=== PATIENT | female | born 1960 | race Native Hawaiian/Other Pacific Islander ===

== ENCOUNTER 2022-02-01 19:57 | Inpatient (IN) | payer MEDICARE, SELFPAY ==
[2022-02-01] VITALS (8 sets, daily range): BP systolic 130–162; BP diastolic 68–94; PULSE 98–107; RESP 16–26; TEMP 36.2; O2SAT 93–98
--- NOTE | 2022-02-01 20:16 | DI.CT.S_ITS ---
PROCEDURE: CT ABDOMEN PELVIS W CON INDICATIONS: GI bleed TECHNIQUE: After the administration of oral and IV contrast, axial sections were acquired from the lung bases to the pubic symphysis. Coronal and sagittal reformats were performed. For radiation dose reduction, the following was used: automated exposure control, adjustment of mA and/or kV according to patient size. COMPARISON: None. FINDINGS: Image quality: Excellent. Lung bases: There is scarring and atelectasis in the lung bases. Mild bronchiectasis is also demonstrated within the inferior right middle lobe likely representing sequelae of prior infection.. Heart: Heart is normal in size. ABDOMEN: Liver: No mass lesion. Gallbladder: Within normal limits without calcified gallstones. Biliary ducts: No biliary ductal dilatation. Pancreas: Unremarkable. Spleen: Normal in size. Adrenal Glands: No adrenal nodules. Kidneys and Ureters: No hydronephrosis. There is renal cortical thinning anteriorly within the right kidney suggesting sequelae of prior infection, trauma, or infarct. 2 punctate calcifications within the right kidney are suggestive of nonobstructing renal stones. Stomach and Bowel: Stomach, small bowel loops, and colon are normal in caliber and wall thickness. The appendix is not discretely identified but there are no pericecal inflammatory changes to suggest appendicitis. No evidence of diverticulitis. No definite mass-like bowel wall thickening identified. Peritoneum: No abnormal intraperitoneal fluid. No free air. Ventral Wall: No hernia. Abdominal Nodes: No retroperitoneal or mesenteric adenopathy by size criteria. Vessels: Aorta and inferior vena cava are normal in size. PELVIS: Pelvic Organs: Unremarkable. Bladder: Unremarkable. Pelvic Nodes: No enlarged lymph nodes. Miscellaneous: No inguinal hernias are seen. Bones: Visualized osseous structures demonstrate no suspicious focal lesions. IMPRESSION: 1. No evidence of diverticulitis or definite masslike bowel wall thickening. Recommend correlation with colonoscopy as clinically indicated. Dictated by: Kishan Marquez M.D. on 02/01/2022 at 21:59 Approved by: Kishan Marquez M.D. on 02/01/2022 at 22:04
--- NOTE | 2022-02-01 20:17 | ED.GIBLEED ---
HPI - GI Bleed General Chief complaint: Syncope Stated complaint: Syncope Time Seen by Provider: 02/01/22 20:10 Source: patient and EMS Mode of arrival: EMS History of Present Illness HPI Narrative: Patient is from [place]. Here for a retreat with family. Patient brought here by ambulance from the retreat, had syncopal episode in the bathroom. Denies any pain or injury. Through this past week patient has had episodes of coffee-ground emesis and black tarry stools. No prior history of gastric ulcer. Was on baby aspirin daily but stopped a year ago. Otherwise not on any blood thinners. Denies any abdominal pain at this time. Patient awake alert oriented x4. No distress. Has history of [place] and stroke in the past. Has history of diabetes. Is on metformin 1000 mg twice a day. Is on lisinopril 10 mg twice a day. Those are her only medications. Related Data Home Medications Medication Instructions Recorded Confirmed acetaminophen 500 mg tablet 1,000 mg PO Q6H PRN Headache 02/02/22 02/02/22 insulin glargine 100 unit/mL (3 50 unit SUBCUT BID 02/02/22 02/02/22 mL) subcutaneous pen (Lantus Solostar U-100 Insulin) insulin lispro 100 unit/mL 40 unit SUBCUT TID 02/02/22 02/02/22 subcutaneous pen lisinopril 10 mg tablet 10 mg PO BID 02/02/22 02/02/22 metformin 1,000 mg tablet 1,000 mg PO BID 02/02/22 02/02/22 oxycodone-acetaminophen 10 mg-325 1 tab PO BID pain 02/02/22 02/02/22 mg tablet (Percocet) Allergies Allergy/AdvReac Type Severity Reaction Status Date / Time adhesive tape Allergy Verified 02/01/22 20:07 ibuprofen Allergy Verified 02/01/22 20:07 Review of Systems Review of Systems Narrative: GENERAL: Denies chills, positive for fatigue, malaise, negative for fever, sweats. HEENT: Denies sinus pain, ear pain, sore throat RESPIRATORY: Denies dyspnea, cough CARDIOVASCULAR: Denies chest pain, palpitations GASTROINTESTINAL: Positive for nausea, vomiting, abdominal pain, black stools, hematemesis : Denies dysuria, frequency, hematuria MUSCULOSKELETAL: denies muscle or bony pain SKIN: Denies rash, skin lesions NEUROLOGIC: Denies weakness, numbness ROS Unobtainable: All systems reviewed & are unremarkable except as noted in HPI and below Patient History Medical History (Updated 02/02/22 @ 01:36 by TRENT Harris-) Diabetic neuropathy associated with type 2 diabetes mellitus Essential hypertension History of heart attack History of stroke with residual deficit Insulin dependent diabetes mellitus with complications Obesity (BMI 30-39.9) Surgical History (Updated 02/02/22 @ 01:36 by TRENT Harris-REBA) History of esophagogastroduodenoscopy (EGD) Family History Mother Diabetes mellitus Hypertension Hyperlipidemia Stroke Heart attack Sister Cancer Social History household members: children Smoking Status: Never smoker Smoking Status: Never smoker alcohol intake frequency: 0-2 drinks per day Substance Use Type: does not use Exam Narrative Exam Narrative: GENERAL: in no distress, not toxic not dyspneic HEAD: Normocephalic. EYES: Pupils equal round No scleral icterus. Slightly pale conjunctiva ENT: Mucous membranes moist. NECK: Trachea midline. CARDIOVASCULAR: Regular rate and rhythm without murmurs RESPIRATORY: Clear to auscultation. Breath sounds equal bilaterally. No wheezes, rales, or rhonchi. GASTROINTESTINAL: Abdomen soft, non-tender, no peritoneal signs. Bowel sounds are present EXTREMITIES: No gross deformities. NEURO: AOx4. SKIN: Warm and dry PSYCH: Not anxious, is cooperative Initial Vital Signs Initial Vital Signs: Vital Signs Temperature 97.1 F L 02/01/22 20:02 Pulse Rate 106 H 02/01/22 20:02 Respiratory Rate 18 02/01/22 20:02 Blood Pressure 133/94 H 02/01/22 20:02 Pulse Oximetry 93 02/01/22 20:02 Oxygen Delivery Method 02/01/22 20:02 Course Course Course Narrative: No new issues during course of stay Decision to Admit Date: 02/01/22 Decision to Admit time: 22:18 Orders Ordered: ED Orders 02/01/22 20:00 COVID19 -Nasal RAPID/Pre-Proc Stat 02/01/22 20:13 Complete Blood Count AUTO DIFF Stat Comprehensive Metabolic Panel Stat PT [Prothrombin Time INR] Stat PTT [Partial Thromboplastin Time] Stat Troponin & CK Cardiac Panel Stat Type and Screen Stat 02/01/22 20:16 CT abdomen pelvis w con Stat Acetaminophen (Acetaminophen 325 Mg Tablet) 650 mg PO Q6HR PRN PRN Reason: Fever/Mild Pain (1-3) Last Admin: 02/02/22 00:55 Dose: 650 mg Documented By: SONIA Dextrose (Dextrose 50 % In Water 25 Gm/50 Ml Syringe) 25 gm IV PRN PRN PRN Reason: Hypoglycemia Hydromorphone HCl (Hydromorphone 0.5 Mg Inj) 0.5 mg IV Q4H PRN PRN Reason: Pain, Moderate (4-6) Sodium Chloride (Normal Saline 0.9%) 1,000 mls @ 100 mls/hr IV CONT GIOVANNI Last Admin: 02/02/22 00:15 Dose: 100 mls/hr Documented By: SONIA Insulin Glargine (Insulin Glargine 100 Unit/Ml 3ml Pen) 50 unit SUBCUT BID GIOVANNI Insulin Human Lispro (Insulin Lispro 100 Unit/Ml 3ml Vial) 0 unit SUBCUT Q6H GIOVANNI; Protocol Last Admin: 02/02/22 00:24 Dose: 7 unit Documented By: SONIA Co-signed By: OTIS Lisinopril (Lisinopril 10 Mg Tablet) 10 mg PO BID GIOVANNI Ondansetron HCl (Ondansetron 4 Mg/2 Ml Inj) 4 mg IV Q4HR PRN PRN Reason: Nausea Pantoprazole Sodium (Pantoprazole 40 Mg Vial) 40 mg IV BID GIOVANNI Discontinued Medications Pantoprazole Sodium 40 mg/ (Sodium Chloride) 100 mls @ 10 mls/hr IV BID GIOVANNI Insulin Human Lispro (Insulin Lispro 100 Unit/Ml 3ml Vial) 0 unit SUBCUT ACHS GIOVANNI; Protocol Ondansetron HCl (Ondansetron 4 Mg/2 Ml Inj) 4 mg IV NOW ONE Stop: 02/01/22 20:16 Last Admin: 02/01/22 20:46 Dose: 4 mg Documented By: AT Ondansetron HCl (Ondansetron 4 Mg/2 Ml Inj) 4 mg IV Q4HR GIOVANNI Pantoprazole Sodium (Pantoprazole 40 Mg Vial) 40 mg IV NOW ONE Stop: 02/01/22 20:16 Last Admin: 02/01/22 20:46 Dose: 40 mg Documented By: AT Tramadol HCl (Tramadol 50 Mg Tablet) 50 mg PO Q4H PRN PRN Reason: Pain, Moderate (4-6) Reevaluation(s) Reevaluation #1: Updated patient and family results and the do agree for admit. Time: 22:18 Consultations Consultation #1: Spoke with general surgery Dr. Alcala, agrees will need EGD/colonoscopy. Will scope her tomorrow. Time: 22:41 Consultation #2: Spoke with hospitalist, Irene Ellison, will admit. Time: 22:41 Vital Signs Vital signs: Vital Signs - 8 hr 02/01/22 20:02 02/01/22 20:15 02/01/22 20:31 Temperature 97.1 F L Pulse Rate 106 H 107 H 104 H Respiratory Rate 18 20 16 Blood Pressure 133/94 H 146/79 H 146/87 H Pulse Oximetry 93 98 97 Oxygen Delivery Method Room Air 02/01/22 20:46 02/01/22 21:01 02/01/22 21:30 Temperature Pulse Rate 101 H 98 H 105 H Respiratory Rate 22 24 26 H Blood Pressure 148/68 H 130/74 Pulse Oximetry 97 97 Oxygen Delivery Method 02/01/22 22:00 02/01/22 22:01 02/01/22 22:01 Temperature Pulse Rate 102 H 101 H Respiratory Rate 18 21 Blood Pressure 162/91 H Pulse Oximetry Oxygen Delivery Method MDM - GI Bleed Differential Diagnosis Differential diagnosis: Likely gastritis, Yecenia-Shearer syndrome, Upper gastrointestinal hemorrhage, Lower gastrointestinal hemorrhage, hematochezia and melena Lab Data Result diagrams: 02/01/22 20:13 02/01/22 20:13 Labs: Lab Results 02/01/22 02/01/22 02/01/22 Range/Units 20:00 20:13 20:13 WBC 9.1 (4.5-11.0) X10^3/uL RBC 4.94 (4.0-5.2) X10^6/uL Hgb 14.5 (12.0-16.0) g/dL Hct 43.6 (36-46) % MCV 88.3 (80-100) fL MCH 29.3 (26-34) PG MCHC 33.2 (30-36) % RDW 13.4 (11.6-14.8) % Plt Count 265 (150-400) X10^3/uL Neut % (Auto) 60.8 (50-75) % Lymph % (Auto) 23.9 L (25-40) % [place] % (Auto) 11.4 (3-14) % Eos % (Auto) 3.4 (2-4) % Baso % (Auto) 0.5 (0-2) % Neut # (Auto) 5500 (2513-3787) /uL Lymph # (Auto) 2200 (5622-0698) /uL [place] # (Auto) 1000 H (0-900) /uL Eos # (Auto) 300 (0-450) /uL Baso # (Auto) 0 (0-100) /uL PT (10.1-12.7) SECONDS INR (0.9-1.3) APTT (26.4-36.2) SECONDS Sodium 135 L (137-145) mmol/L Potassium 3.8 (3.4-5.1) mmol/L Chloride 101 (98-107) mmol/L Carbon Dioxide 25 (22-32) mmol/L BUN 12 (7-17) mg/dL Creatinine 0.73 (0.52-1.04) mg/dL Estimated GFR > 60 (>60) mL/min BUN/Creatinine Ratio 16.4 (6-22) Glucose 370 H (80-110) mg/dL Hemoglobin A1c (4.0-6.0) % Calcium 8.6 (8.4-10.2) mg/dL Total Bilirubin 0.6 (0.2-1.3) mg/dL AST 52 H (14-36) IU/L ALT 24 (<35) IU/L Alkaline Phosphatase 98 (38-126) U/L Total Creatine Kinase (30-135) U/L CK-MB (CK-2) CK-MB (CK-2) Rel Index Troponin I (0.01-0.034) ng/mL Total Protein 8.6 H (6.3-8.2) g/dL Albumin 4.2 (3.5-5.0) g/dL Globulin 4.4 H (1.7-4.1) g/dL Albumin/Globulin Ratio 1.0 (1.0-2.8) SARS-CoV-2 (PCR) Negative (Negative) Blood Type Antibody Screen 02/01/22 02/01/22 02/01/22 Range/Units 20:13 20:13 20:13 WBC (4.5-11.0) X10^3/uL RBC (4.0-5.2) X10^6/uL Hgb (12.0-16.0) g/dL Hct (36-46) % MCV (80-100) fL MCH (26-34) PG MCHC (30-36) % RDW (11.6-14.8) % Plt Count (150-400) X10^3/uL Neut % (Auto) (50-75) % Lymph % (Auto) (25-40) % [place] % (Auto) (3-14) % Eos % (Auto) (2-4) % Baso % (Auto) (0-2) % Neut # (Auto) (1987-8284) /uL Lymph # (Auto) (5328-2529) /uL [place] # (Auto) (0-900) /uL Eos # (Auto) (0-450) /uL Baso # (Auto) (0-100) /uL PT 11.3 (10.1-12.7) SECONDS INR 1.0 (0.9-1.3) APTT 29 (26.4-36.2) SECONDS Sodium (137-145) mmol/L Potassium (3.4-5.1) mmol/L Chloride (98-107) mmol/L Carbon Dioxide (22-32) mmol/L BUN (7-17) mg/dL Creatinine (0.52-1.04) mg/dL Estimated GFR (>60) mL/min BUN/Creatinine Ratio (6-22) Glucose (80-110) mg/dL Hemoglobin A1c (4.0-6.0) % Calcium (8.4-10.2) mg/dL Total Bilirubin (0.2-1.3) mg/dL AST (14-36) IU/L ALT (<35) IU/L Alkaline Phosphatase (38-126) U/L Total Creatine Kinase 80 (30-135) U/L CK-MB (CK-2) TNP CK-MB (CK-2) Rel Index TNP Troponin I < 0.012 (0.01-0.034) ng/mL Total Protein (6.3-8.2) g/dL Albumin (3.5-5.0) g/dL Globulin (1.7-4.1) g/dL Albumin/Globulin Ratio (1.0-2.8) SARS-CoV-2 (PCR) (Negative) Blood Type O Positive Antibody Screen Negative 02/01/22 Range/Units 20:13 WBC (4.5-11.0) X10^3/uL RBC (4.0-5.2) X10^6/uL Hgb (12.0-16.0) g/dL Hct (36-46) % MCV (80-100) fL MCH (26-34) PG MCHC (30-36) % RDW (11.6-14.8) % Plt Count (150-400) X10^3/uL Neut % (Auto) (50-75) % Lymph % (Auto) (25-40) % [place] % (Auto) (3-14) % Eos % (Auto) (2-4) % Baso % (Auto) (0-2) % Neut # (Auto) (3900-3690) /uL Lymph # (Auto) (0578-9431) /uL [place] # (Auto) (0-900) /uL Eos # (Auto) (0-450) /uL Baso # (Auto) (0-100) /uL PT (10.1-12.7) SECONDS INR (0.9-1.3) APTT (26.4-36.2) SECONDS Sodium (137-145) mmol/L Potassium (3.4-5.1) mmol/L Chloride (98-107) mmol/L Carbon Dioxide (22-32) mmol/L BUN (7-17) mg/dL Creatinine (0.52-1.04) mg/dL Estimated GFR (>60) mL/min BUN/Creatinine Ratio (6-22) Glucose (80-110) mg/dL Hemoglobin A1c > 14.0 H (4.0-6.0) % Calcium (8.4-10.2) mg/dL Total Bilirubin (0.2-1.3) mg/dL AST (14-36) IU/L ALT (<35) IU/L Alkaline Phosphatase (38-126) U/L Total Creatine Kinase (30-135) U/L CK-MB (CK-2) CK-MB (CK-2) Rel Index Troponin I (0.01-0.034) ng/mL Total Protein (6.3-8.2) g/dL Albumin (3.5-5.0) g/dL Globulin (1.7-4.1) g/dL Albumin/Globulin Ratio (1.0-2.8) SARS-CoV-2 (PCR) (Negative) Blood Type Antibody Screen Point of Care Testing Stool Occult Blood Positive Imaging Data CT scan - abdomen/pelvis: Radiologist's Impression: [address] [address] [address] Scan Report Signed Patient: Joann Marie MR#: [id number] : 1960 Acct:[id number] Age/Sex: 61 / F Date of Service: 02/01/22 Loc: ED Accession Number: [id number] ?? Procedure: CT abdomen pelvis w con Ordering Provider: Govind Mauricio MD PROCEDURE:? CT ABDOMEN PELVIS W CON ? INDICATIONS:? GI bleed ? TECHNIQUE:? After the administration of oral and IV contrast, axial sections were acquired from the lung bases to the pubic symphysis.? Coronal and sagittal reformats were performed.? For radiation dose reduction, the following was used:? automated exposure control, adjustment of mA and/or kV according to patient size. ? COMPARISON:? None. ? FINDINGS:? Image quality:? Excellent.? ? Lung bases:? There is scarring and atelectasis in the lung bases.? Mild bronchiectasis is also demonstrated within the inferior right middle lobe likely representing sequelae of prior infection..? ? Heart:? Heart is normal in size. ? ? ABDOMEN: Liver:? No mass lesion. Gallbladder:? Within normal limits without calcified gallstones.? ? Biliary ducts:? No biliary ductal dilatation.? ? Pancreas:? Unremarkable.? ? Spleen:? Normal in size.? ? Adrenal Glands:? No adrenal nodules.? ? Kidneys and Ureters:? No hydronephrosis.? There is renal cortical thinning anteriorly within the right kidney suggesting sequelae of prior infection, trauma, or infarct.? 2 punctate calcifications within the right kidney are suggestive of nonobstructing renal stones. ? ? Stomach and Bowel:? Stomach, small bowel loops, and colon are normal in caliber and wall thickness.? The appendix is not discretely identified but there are no pericecal inflammatory changes to suggest appendicitis.? No evidence of diverticulitis.? No definite mass-like bowel wall thickening identified. Peritoneum:? No abnormal intraperitoneal fluid.? No free air.? ? Ventral Wall: ? No hernia.? Abdominal Nodes:? No retroperitoneal or mesenteric adenopathy by size criteria.? Vessels:? Aorta and inferior vena cava are normal in size.? ? PELVIS: Pelvic Organs:? Unremarkable.? ? Bladder:? Unremarkable.? ? Pelvic Nodes: No enlarged lymph nodes.? Miscellaneous: No inguinal hernias are seen. ? ? ? Bones:? Visualized osseous structures demonstrate no suspicious focal lesions. ? IMPRESSION:? ? 1. No evidence of diverticulitis or definite masslike bowel wall thickening.? Recommend correlation with colonoscopy as clinically indicated. ? ? ? Dictated by: Kishan Marquez M.D. on 02/01/2022 at 21:59 ? ? Approved by: Kishan Marquez M.D. on 02/01/2022 at 22:04 ? ECG Data Interpretation: Sinus tachycardia rate [address] elevation or depression MDM Narrative Medical decision making narrative: Appropriate for admission as patient is symptomatic with GI bleed. Will need EGD/colonoscopy Discharge Plan Departure Patient Disposition: Admitted As Inpatient Clinical Impression: Acute GI bleeding Admit Date/Time: 02/01/22 22:53 Admit Provider: Irene Ellison
[2022-02-01 20:29] LABS: Add Manual Diff / Slide Review NO; Basophils Absolute Auto 0 /uL (0-100); Basophils Percent Auto 0.5 % (0-2); Eosinophils Absolute Auto 300 /uL (0-450); Eosinophils Percent Auto 3.4 % (2-4); Hematocrit 43.6 % (36-46); Hemoglobin 14.5 g/dL (12.0-16.0); Lymphocytes Absolute Auto 2200 /uL (1100-4500); Lymphocytes Percent Auto 23.9 % (25-40); Mean Corpuscular HGB Conc 33.2 % (30-36); Mean Corpuscular Hemoglobin 29.3 PG (26-34); Mean Corpuscular Volume 88.3 fL (80-100); Monocytes Absolute Auto 1000 /uL (0-900); Monocytes Percent Auto 11.4 % (3-14); Neutrophils Absolute Auto 5500 /uL (1500-7000); Neutrophils Percent Auto 60.8 % (50-75); Platelet Count 265 X10^3/uL (150-400); Red Blood Cell Count 4.94 X10^6/uL (4.0-5.2); Red Cell Distribution Width 13.4 % (11.6-14.8); White Blood Cell Count 9.1 X10^3/uL (4.5-11.0)
[2022-02-01 20:34] LABS: Prothrombin Time 11.3 SECONDS (10.1-12.7)
[2022-02-01 20:37] LABS: PTT Partial Thromboplastin Tim 29 SECONDS (26.4-36.2)
[2022-02-01 20:39] LABS: Creatine Kinase 80 U/L (30-135)
[2022-02-01] MEDS: ONDANSETRON 4 MG/2 ML INJ IV (20:46)
[2022-02-01] MEDS: PANTOPRAZOLE 40 MG VIAL IV (20:46)
[2022-02-01 20:47] LABS: COVID19 -Nasal RAPID Negative (Negative)
[2022-02-01 20:50] LABS: Alanine Aminotransferase 24 IU/L (<35); Albumin 4.2 g/dL (3.5-5.0); Alkaline Phosphatase 98 U/L (38-126); Aspartate Aminotransferase 52 IU/L (14-36); BUN Creatinine Ratio 16.4 (6-22); Bilirubin Total 0.6 mg/dL (0.2-1.3); Blood Urea Nitrogen 12 mg/dL (7-17); Calcium 8.6 mg/dL (8.4-10.2); Carbon Dioxide 25 mmol/L (22-32); Chloride 101 mmol/L (98-107); Estimated Glomerular Filt Rate > 60 mL/min (>60); Globulin 4.4 g/dL (1.7-4.1); Glucose 370 mg/dL (80-110); HEMOLYSIS 16 (0-50); Potassium 3.8 mmol/L (3.4-5.1); Sodium 135 mmol/L (137-145); Total Protein 8.6 g/dL (6.3-8.2)
[2022-02-01 20:52] LABS: Troponin I < 0.012 ng/mL (0.01-0.034)
[2022-02-01 23:29] LABS: Hemoglobin A1C% w Est Avg Glu > 14.0 % (4.0-6.0)
[2022-02-02] VITALS (21 sets, daily range): BP systolic 91–164; BP diastolic 37–90; PULSE 63–108; RESP 16–21; TEMP 36–36.7; O2SAT 90–100; BMI 38.9
--- NOTE | 2022-02-02 | PATH_ITS ---
[facility] Accession Number: [id number] . 01 Material submitted: . gastrointestinal site - ANTRAL BIOPSY . 01 Clinical history: . SYNCOPE . 01 Diagnosis: Antrum, Biopsy: Helicobacter pylori gastritis with intestinal metaplasia. Helicobacter organisms are identified on H/E stain. Negative for dysplasia and malignancy. V 02/03/2022 1058 Local . 01 Electronically signed: . Harriett Anthony MD, Pathologist NPI- [id number] . 01 Gross description: . ANTRAL BIOPSY: Received in formalin are 4 fragment(s) of carlson, soft tissue measuring 0.1 x 0.1 x 0.1 cm to 0.3 x 0.3 x 0.2 cm submitted entirely in 1 cassette(s) /CHRISTA 02/03/2022 0109 Local . 01 Pathologist provided ICD-10: B96.81 . 01 CPT . 430523 Specimen Comment: A courtesy copy of this report has been sent to [facility] Pathology Performed at: 01 [facility] Cytology [address] [place] [address], [place], [place] [id number] MD Kishan Pepe MD Phone: [phone]
[2022-02-02] MEDS: SODIUM CHLORIDE 0.9% 1,000 ML 100 ML IV ×2 (00:15→11:43)
[2022-02-02] MEDS: INSULIN LISPRO 100 UNIT/ML 3ML VIAL SUBCUT ×5 (00:24→20:53)
[2022-02-02] MEDS: ACETAMINOPHEN 325 MG TABLET 650 MG PO ×2 (00:55→20:42)
--- NOTE | 2022-02-02 01:11 | P.HP_ITS ---
History of Present Illness History of Present Illness Date Patient Seen: 02/01/22 Time Patient Seen: 23:10 Chief complaint: Syncope Narrative: Joann Marie is a 61-year-old female with a medical history a heart attack in 2019, stroke 2016, Covid 2020, essential hypertension, insulin-dependent type 2 diabetes with neuropathy and morbid obesity who presented to the ED following being found down in restroom- syncopal episode following black tarry bowel movement. The patient is visiting from [facility] and complains of dizziness, headache, weakness, fatigue, coffee-ground emesis x2 daily x 6 days and worsening black tarry stools x1 week, generalized diffuse abdominal pain. Patient is an inconsistent historian. She reports that the abdominal pain diarrhea and vomiting after eating and coughing up blood and pain with eating and blood in her stool has been going on for approximately a year. Patient states that she was hospitalized for COVID February 2021 and reports that she was complaining of bloody stools but that the hospital found her stools to be guaiac negative at that time that she also may have had a EGD that was negative. Patient also complains of right-sided chest pain that she can elicited by palpation x 1 day. Patient does denies shortness of breath, no recent trauma, injury or illness exposure. She states that she did have flu- like symptoms approximately 1 week ago. Patient has balance coordination issues following her stroke in 2016 and uses a walker at home. Patient reports that she is compliant in taking 50 units of Lantus b.i.d, 40 units of Humalog 3 times daily, 1000 mg of metformin 3 times daily, based on A1c >14 this is clinically in probable. Patient also reports that she takes lisinopril 10 mg b.i.d. for her hypertension. Patient denies any history of GI bleed, syncope, blood thinners, history of blood clots. Patient's last guaiac-positive stool was in the ED. Patient denies any urinary symptoms frequency urgency dysuria. Patient is stable, slightly pale looking in no distress at the time of admit. Temp 97.1?, BP 162/91, HR 101, R 21, O2 saturation 97% on room air. Patient's CBC/H&H are normal, CMP is normal with the exception of a glucose of 370, an AST of 52, PT/INR/troponin are also normal. Patient is not in DKA and has no gap. Patient's abdomen pelvis CT demonstrated no diverticulitis or masslike bowel wall thickening. EKG demonstrated sinus tachycardia with a rate of 106 with left ventricular hypertrophy with R in aVL. Patient admitted for syncope secondary to GI bleed, uncontrolled hypertension, and hyperglycemia. Dr. Alcala general surgery to consult tomorrow. Patient History Medical History (Updated 02/02/22 @ 01:[address] Harris) Diabetic neuropathy associated with type 2 diabetes mellitus Essential hypertension History of heart attack History of stroke with residual deficit Insulin dependent diabetes mellitus with complications Obesity (BMI 30-39.9) Surgical History (Updated 02/02/22 @ 01:[address] Harris) History of esophagogastroduodenoscopy (EGD) Family & Social History Family History Mother Diabetes mellitus Hypertension Hyperlipidemia Stroke Heart attack Sister Cancer Social History: household members lives with her daughter, in [place] is permanently disabled. Prior Living Arrangements House Safety & Behavioral: Feels Safe in Current Yes Environment Been Physically Hurt or No Threatened By a Person Tobacco & Substance use: Smoking Status Never smoker alcohol intake frequency 0-2 drinks per day Substance Use Type does not use Meds Home Medications and Allergies Home Medications Medication Instructions Recorded Confirmed Type acetaminophen 500 mg tablet 1,000 mg PO Q6H PRN Headache 02/02/22 02/02/22 History insulin glargine 100 unit/mL (3 50 unit SUBCUT BID 02/02/22 02/02/22 History mL) subcutaneous pen (Lantus Solostar U-100 Insulin) insulin lispro 100 unit/mL 40 unit SUBCUT TID 02/02/22 02/02/22 History subcutaneous pen lisinopril 10 mg tablet 10 mg PO BID 02/02/22 02/02/22 History metformin 1,000 mg tablet 1,000 mg PO BID 02/02/22 02/02/22 History oxycodone-acetaminophen 10 mg-325 1 tab PO BID pain 02/02/22 02/02/22 History mg tablet (Percocet) Allergies Allergy/AdvReac Type Severity Reaction Status Date / Time adhesive tape Allergy Verified 02/01/22 20:07 ibuprofen Allergy Verified 02/01/22 20:07 Review of Systems Review of Systems Narrative: All 12 point systems reviewed with the patient and are negative except otherwise documented. Exam Vital Signs (past 8 hours): - 02/01/22 20:02 02/01/22 20:15 02/01/22 20:31 Temperature 97.1 F L Pulse Rate 106 H 107 H 104 H Respiratory Rate 18 20 16 Blood Pressure 133/94 H 146/79 H 146/87 H Pulse Oximetry 93 98 97 Oxygen Delivery Method Room Air Oxygen Flow Rate 02/01/22 20:46 02/01/22 21:01 02/01/22 21:30 Temperature Pulse Rate 101 H 98 H 105 H Respiratory Rate 22 24 26 H Blood Pressure 148/68 H 130/74 Pulse Oximetry 97 97 Oxygen Delivery Method Oxygen Flow Rate 02/01/22 22:00 02/01/22 22:01 02/01/22 22:01 Temperature Pulse Rate 102 H 101 H Respiratory Rate 18 21 Blood Pressure 162/91 H Pulse Oximetry Oxygen Delivery Method Oxygen Flow Rate 02/02/22 00:11 02/02/22 00:25 Temperature 97.4 F L Pulse Rate 108 H Respiratory Rate 19 Blood Pressure 141/85 H Pulse Oximetry 98 98 Oxygen Delivery Method Room Air Oxygen Flow Rate 0 Oxygen Delivery Method Room Air Oxygen Flow Rate 0 Narrative Exam Narrative: General: Patient is a pleasant pale obese female in no distress at this time. HEENT: Normocephalic, atraumatic, extraocular muscles intact, oral pharynx is clear and mucous membranes are moist. Neck is supple and symmetric, trachea is midline, no adenopathy, no thyroid enlargement, nontender, no masses palpated. Negative for JVD Chest: Normal AP diameter and contour without kyphoscoliosis, no nasal flaring, retractions, or tachypneic labored breathing. Lungs: Auscultation of all lung calderon are clear without adventitious sounds, wheezes, rhonchi, or rales. Cardio: S1 & S2 with regular rate and rhythm without murmur, rubs, or gallops, no carotid bruit, no cardiac pulsations present. Abdomen: Soft diffusely tender to palpation throughout, negative for organomegaly, or masses. Bowel sounds are present in all 4 quadrants, mild guarding, no rebound, no CVA tenderness. Musculoskeletal: Muscle strength and tone are equal within normal limits, no deformity, crepitus, effusions, cyanosis, clubbing or edema present. Full range of motion intact radial and pedal pulses are normal. Skin: Warm dry and intact without rashes, ulcerations or petechiae. Neuro: Alert and orientated x3, poor historian strength is +5/5 in all extremities, sensation to touch intact, no gross deficits noted of cranial nerve s. Psych: Patient has a well-kept appearance, appropriate affect, mental status attitude thought context and judgment are slightly less than anticipated for stated age. Objective Labs Result Diagrams: 02/01/22 20:13 02/01/22 20:13 Labs: Laboratory Results - last 24 hr 02/01/22 02/01/22 02/01/22 20:00 20:13 20:13 WBC 9.1 RBC 4.94 Hgb 14.5 Hct 43.6 MCV 88.3 MCH 29.3 MCHC 33.2 RDW 13.4 Plt Count 265 Neut % (Auto) 60.8 Lymph % (Auto) 23.9 L Weston % (Auto) 11.4 Eos % (Auto) 3.4 Baso % (Auto) 0.5 Neut # (Auto) 5500 Lymph # (Auto) 2200 [place]on # (Auto) 1000 H Eos # (Auto) 300 Baso # (Auto) 0 PT INR APTT Sodium 135 L Potassium 3.8 Chloride 101 Carbon Dioxide 25 BUN 12 Creatinine 0.73 Estimated GFR > 60 BUN/Creatinine Ratio 16.4 Glucose 370 H Hemoglobin A1c Calcium 8.6 Total Bilirubin 0.6 AST 52 H ALT 24 Alkaline Phosphatase 98 Total Creatine Kinase CK-MB (CK-2) CK-MB (CK-2) Rel Index Troponin I Total Protein 8.6 H Albumin 4.2 Globulin 4.4 H Albumin/Globulin Ratio 1.0 SARS-CoV-2 (PCR) Negative Blood Type Antibody Screen 02/01/22 02/01/22 02/01/22 20:13 20:13 20:13 WBC RBC Hgb Hct MCV MCH MCHC RDW Plt Count Neut % (Auto) Lymph % (Auto) Weston % (Auto) Eos % (Auto) Baso % (Auto) Neut # (Auto) Lymph # (Auto) Weston # (Auto) Eos # (Auto) Baso # (Auto) PT 11.3 INR 1.0 APTT 29 Sodium Potassium Chloride Carbon Dioxide BUN Creatinine Estimated GFR BUN/Creatinine Ratio Glucose Hemoglobin A1c Calcium Total Bilirubin AST ALT Alkaline Phosphatase Total Creatine Kinase 80 CK-MB (CK-2) TNP CK-MB (CK-2) Rel Index TNP Troponin I < 0.012 Total Protein Albumin Globulin Albumin/Globulin Ratio SARS-CoV-2 (PCR) Blood Type O Positive Antibody Screen Negative 02/01/22 20:13 WBC RBC Hgb Hct MCV MCH MCHC RDW Plt Count Neut % (Auto) Lymph % (Auto) Weston % (Auto) Eos % (Auto) Baso % (Auto) Neut # (Auto) Lymph # (Auto) Weston # (Auto) Eos # (Auto) Baso # (Auto) PT INR APTT Sodium Potassium Chloride Carbon Dioxide BUN Creatinine Estimated GFR BUN/Creatinine Ratio Glucose Hemoglobin A1c > 14.0 H Calcium Total Bilirubin AST ALT Alkaline Phosphatase Total Creatine Kinase CK-MB (CK-2) CK-MB (CK-2) Rel Index Troponin I Total Protein Albumin Globulin Albumin/Globulin Ratio SARS-CoV-2 (PCR) Blood Type Antibody Screen Assessment & Plan Assessment & Plan narrative: Joann Marie is a 61-year-old female with a medical history a heart attack in 2019, stroke 2017, Covid 2020, essential hypertension, (non-compliant)insulin-dependent type 2 diabetes with neuropathy and obesity who presented to the ED following being found down in restroom- syncopal episode following a reported multiple coffee-ground emesis and black tarry bowel movement multiple times daily x 1 week. Patient is visiting from [place] here on a judaism retreat. This patient requires acute care inpatient hospital management fo Acute GI Bleed, after failing outpatient management. The patient is at much higher risk for medical and surgical complications because of her noncompliance management of her insulin-dependent type 2 diabetes, hypertension, and obesity.. These factors increase the difficulty and complexity of medical and surgical interventions and increases the chances of poor outcomes such as morbidity and mortality. The patient will be admitted and consulted by General surgery Dr. Alcala for EGD and colonoscopy tomorrow, we will continue to monitor her H&H, hydrate gently, improve her blood pressure and blood sugars. 1. Syncope as a result of Acute GI bleed, upper and lower, acute, present on admission -as evidence by positive guaiac stool in ED, and coffee-ground emesis.-though patient's H&H are stable 14.5/43.6. -high suspicion of gastric ulceration. -patient placed on bedrest only up to bedside commode with assistance.-fall precautions to prevent syncopal episode. -IV Protonix given in ED, followed by 20 mg IV Protonix b.i.d. -NS at 100 cc/HR -monitor H&H -NPO -Dr. Alcala general surgery to consult tomorrow -EGD/colonoscopy tomorrow 2. Uncontrolled hypertension, essential, acute on chronic, present on admission with a history stroke and heart attack. -admitting blood pressure 162/91 -Continue Lisinopril 10mg BID -Recommend that patient follow up with her PCP upon returning home, and obtain Cardiology evaluation. 3. Insulin-dependent type 2 diabetes with neuropathy, medication noncompliance, hyperglycemia, acute on chronic, present on admission -high suspicion of uncontrolled diabetic induced gastroparesis. -patient admitted under diabetic protocol -glucose checks q.6 hours while NPO, once eating return to [facility] -check patient's A1c>14% this reflects patient's insulin noncompliance. Because patient is not from the area unable to verify prescription continuity and usage. -Recommend follow up with PCP -for intensive DM education and management. -Once eating Low carb Diet -Continue Lantus 50 units b.i.d., placed on Humalog high-dose meal sliding scale. -patient is not in DKA and has no gap. -Consult Dietary -uncontrolled DM 4. Obesity as evidence by BMI of 38.9, acute on chronic, present on admission -dietary consult placed for nutritional education and weight loss. -Follow up with PCP for dietary and lifestyle changes. Code status:Full Surrogate decision maker: Daughter Shira FABIAN PCR:Negative DVT/VTE prophylaxis:SCD's only Disposition: Patient admitted for General surgery consult regarding GI bleed expected length of stay greater than 2 midnights. I have utilized all available immediate resources to obtain, update, or review the patient's current medications. I confirmed that the patient's advanced care plan is present, Code status is documented and/or surrogate decision maker is listed in the patient's medical record. Time Spent With Patient Critical Care time: I spent a total of [] minutes of critical care time on this patient's care today; this time is exclusive of procedural time.
--- NOTE | 2022-02-02 01:18 | PC.ADMIT ---
[address] [place] Admission Note: The patient,Joann Marei,61 y/o, was given written information regarding hospital policies, unit procedures and contact persons. Patient's smoking status: Never smoker. Vital Signs - 8 hr 02/01/22 20:02 02/01/22 20:15 02/01/22 20:31 Temperature 97.1 F L Pulse Rate 106 H 107 H 104 H Respiratory Rate 18 20 16 Blood Pressure 133/94 H 146/79 H 146/87 H Pulse Oximetry 93 98 97 Oxygen Delivery Method Room Air Oxygen Flow Rate 02/01/22 20:46 02/01/22 21:01 02/01/22 21:30 Temperature Pulse Rate 101 H 98 H 105 H Respiratory Rate 22 24 26 H Blood Pressure 148/68 H 130/74 Pulse Oximetry 97 97 Oxygen Delivery Method Oxygen Flow Rate 02/01/22 22:00 02/01/22 22:01 02/01/22 22:01 Temperature Pulse Rate 102 H 101 H Respiratory Rate 18 21 Blood Pressure 162/91 H Pulse Oximetry Oxygen Delivery Method Oxygen Flow Rate 02/02/22 00:11 02/02/22 00:25 02/02/22 01:14 Temperature 97.4 F L Pulse Rate 108 H Respiratory Rate 19 Blood Pressure 141/85 H Pulse Oximetry 98 98 Oxygen Delivery Method Room Air Room Air Oxygen Flow Rate 0 Patient admitted to room 211 per stretcher from ER. Assisted into bed and then on/off BSC with 1-2 assist; generalized weakness and dizziness. Breath sounds CTA with RA sat of 98%. HRR but tachy at 108 [address] tele[address] reading of ST. Denies nausea; reports coffee ground emesis BID x past week. HOB is elevated to 15 degrees per order. BT hypoactive; reports black, tarry stools for past month. Has urinary hesitancy and some incontinence but denies dysuria, frequency or urgency; UA sent to lab. Is able to turn self in bed. Verbalizes understanding of bedrest w/BSC only with assist. Bilateral calf SCD's applied. Complained of headache and foot pain and was medicated with Tylenol after confirming w/Scot LOPES, that she could take po meds with sips of water. Patient verbalizes understanding of NPO status and was provided with lemon-glycerin swabs. States she has chronic numbness on plantar surface of bilateral feet but denies any diagnosis of neuropathy. Fall risk assessment is high and bed alarm is activated. Daughter rooming in. Oriented to call light and bed controls.
[2022-02-02 01:44] LABS: Bilirubin Urine UA NEGATIVE (NEGATIVE); Glucose Urine UA 2+ g/dL (Negative); Ketones Urine UA NEGATIVE (NEGATIVE); Leukocyte Esterase Urine UA TRACE (NEGATIVE); Nitrite Urine UA NEGATIVE (Negative); Occult Blood Urine UA 1+ (Negative); Protein Urine UA TRACE (Negative); Urobilinogen Urine UA 0.2 E.U./dL (0.2)
[2022-02-02 01:52] LABS: Appearance Urine UA SL CLOUDY; Color Urine UA Straw
[2022-02-02 02:46] LABS: Bacteria Urine Many (>30); Culture Indicated Urine Specimen Cultured; RBC Urine 0-1/HPF (0-5/HPF); Squamous Epithelial Cell Urine 1-5 /HPF (0-5/HPF); WBC Urine 5-10/HPF (0-5/HPF)
[2022-02-02 06:37] LABS: INR 1.1 (0.9-1.3)
[2022-02-02 06:38] LABS: Hematocrit 37.3 % (36-46); Hemoglobin 12.7 g/dL (12.0-16.0)
[2022-02-02 06:39] LABS: PTT Partial Thromboplastin Tim 28 SECONDS (26.4-36.2)
[2022-02-02 07:01] LABS: NT-proBNP (BNP-Adult 18+) 1180 pg/mL (<125)
--- NOTE | 2022-02-02 08:58 | P.CONS_ITS ---
History of Present Illness Consult details Date Patient Seen: 02/02/22 Time Patient Seen: 08:58 Chief complaint: Syncope Narrative: Joann is a 61-year-old woman with morbid obesity and type 2 diabetes who presented with syncope, hematemesis and melena. She also reports abdominal pain after eating. Her symptoms have been going on for 2 days. She is never had a colonoscopy. She is visiting from [place] and was planning on returning today. Her only abdominal surgery as an open appendectomy which was performed in [place] in the s. Her heart rate and hemoglobin have been normal since her admission. Meds Home Medications and Allergies Home Medications Medication Instructions Recorded Confirmed Type acetaminophen 500 mg tablet 1,000 mg PO Q6H PRN Headache 02/02/22 02/02/22 History insulin glargine 100 unit/mL (3 50 unit SUBCUT BID 02/02/22 02/02/22 History mL) subcutaneous pen (Lantus Solostar U-100 Insulin) insulin lispro 100 unit/mL 40 unit SUBCUT TID 02/02/22 02/02/22 History subcutaneous pen lisinopril 10 mg tablet 10 mg PO BID 02/02/22 02/02/22 History metformin 1,000 mg tablet 1,000 mg PO BID 02/02/22 02/02/22 History oxycodone-acetaminophen 10 mg-325 1 tab PO BID pain 02/02/22 02/02/22 History mg tablet (Percocet) Allergies Allergy/AdvReac Type Severity Reaction Status Date / Time adhesive tape Allergy Verified 02/01/22 20:07 ibuprofen Allergy Verified 02/01/22 20:07 Exam Vital Signs (past 8 hours): - 02/02/22 01:14 02/02/22 06:14 02/02/22 06:15 Temperature 97.6 F Pulse Rate 63 Respiratory Rate 17 Blood Pressure 91/37 L 122/71 Pulse Oximetry 94 Oxygen Delivery Method Room Air Oxygen Flow Rate 02/02/22 06:15 Temperature Pulse Rate Respiratory Rate Blood Pressure Pulse Oximetry 94 Oxygen Delivery Method Room Air Oxygen Flow Rate 0 Oxygen Delivery Method Room Air Oxygen Flow Rate 0 Const General: lethargic Nutritional Appearance: obese Resp Effort & Inspection: normal respiratory effort GI Palpation: soft and No guarding Objective Labs Result Diagrams: 02/02/22 06:00 02/01/22 20:13 Labs: Laboratory Results - last 24 hr 02/01/22 02/01/22 02/01/22 20:00 20:13 20:13 WBC 9.1 RBC 4.94 Hgb 14.5 Hct 43.6 MCV 88.3 MCH 29.3 MCHC 33.2 RDW 13.4 Plt Count 265 Neut % (Auto) 60.8 Lymph % (Auto) 23.9 L Gre[place] % (Auto) 11.4 Eos % (Auto) 3.4 Baso % (Auto) 0.5 Neut # (Auto) 5500 Lymph # (Auto) 2200 [place] # (Auto) 1000 H Eos # (Auto) 300 Baso # (Auto) 0 PT INR APTT Sodium 135 L Potassium 3.8 Chloride 101 Carbon Dioxide 25 BUN 12 Creatinine 0.73 Estimated GFR > 60 BUN/Creatinine Ratio 16.4 Glucose 370 H Hemoglobin A1c Calcium 8.6 Total Bilirubin 0.6 AST 52 H ALT 24 Alkaline Phosphatase 98 Total Creatine Kinase CK-MB (CK-2) CK-MB (CK-2) Rel Index Troponin I NT-Pro-B Natriuret Pep Total Protein 8.6 H Albumin 4.2 Globulin 4.4 H Albumin/Globulin Ratio 1.0 Urine Color Urine Appearance Urine pH Ur Specific [place] Urine Protein Urine Glucose (UA) Urine Ketones Urine Occult Blood Urine Nitrate Urine Bilirubin Urine Urobilinogen Ur Leukocyte Esterase Urine RBC Urine WBC Ur Squamous Epith Cells Urine Bacteria Urine Yeast Ur Culture Indicated? SARS-CoV-2 (PCR) Negative Blood Type Antibody Screen 02/01/22 02/01/22 02/01/22 20:13 20:13 20:13 WBC RBC Hgb Hct MCV MCH MCHC RDW Plt Count Neut % (Auto) Lymph % (Auto) Gre[place] % (Auto) Eos % (Auto) Baso % (Auto) Neut # (Auto) Lymph # (Auto) Gre[place] # (Auto) Eos # (Auto) Baso # (Auto) PT 11.3 INR 1.0 APTT 29 Sodium Potassium Chloride Carbon Dioxide BUN Creatinine Estimated GFR BUN/Creatinine Ratio Glucose Hemoglobin A1c Calcium Total Bilirubin AST ALT Alkaline Phosphatase Total Creatine Kinase 80 CK-MB (CK-2) TNP CK-MB (CK-2) Rel Index TNP Troponin I < 0.012 NT-Pro-B Natriuret Pep Total Protein Albumin Globulin Albumin/Globulin Ratio Urine Color Urine Appearance Urine pH Ur Specific [place] Urine Protein Urine Glucose (UA) Urine Ketones Urine Occult Blood Urine Nitrate Urine Bilirubin Urine Urobilinogen Ur Leukocyte Esterase Urine RBC Urine WBC Ur Squamous Epith Cells Urine Bacteria Urine Yeast Ur Culture Indicated? SARS-CoV-2 (PCR) Blood Type O Positive Antibody Screen Negative 02/01/22 02/02/22 02/02/22 20:13 00:01 06:00 WBC RBC Hgb 12.7 Hct 37.3 MCV MCH MCHC RDW Plt Count Neut % (Auto) Lymph % (Auto) Gre[place] % (Auto) Eos % (Auto) Baso % (Auto) Neut # (Auto) Lymph # (Auto) Gre[place] # (Auto) Eos # (Auto) Baso # (Auto) PT INR APTT Sodium Potassium Chloride Carbon Dioxide BUN Creatinine Estimated GFR BUN/Creatinine Ratio Glucose Hemoglobin A1c > 14.0 H Calcium Total Bilirubin AST ALT Alkaline Phosphatase Total Creatine Kinase CK-MB (CK-2) CK-MB (CK-2) Rel Index Troponin I NT-Pro-B Natriuret Pep Total Protein Albumin Globulin Albumin/Globulin Ratio Urine Color Straw Urine Appearance Sl cloudy Urine pH 5.0 Ur Specific [place] 1.010 Urine Protein Trace H Urine Glucose (UA) 2+ H Urine Ketones Negative Urine Occult Blood 1+ H Urine Nitrate Negative Urine Bilirubin Negative Urine Urobilinogen 0.2 Ur Leukocyte Esterase Trace H Urine RBC 0-1/hpf Urine WBC 5-10/hpf H Ur Squamous Epith Cells 1-5 /hpf Urine Bacteria Many (>30) H Urine Yeast 0-1/hpf Ur Culture Indicated? Specimen cultured SARS-CoV-2 (PCR) Blood Type Antibody Screen 02/02/22 02/02/22 06:00 06:00 WBC RBC Hgb Hct MCV MCH MCHC RDW Plt Count Neut % (Auto) Lymph % (Auto) Gre[place] % (Auto) Eos % (Auto) Baso % (Auto) Neut # (Auto) Lymph # (Auto) Gregg # (Auto) Eos # (Auto) Baso # (Auto) PT 12.0 INR 1.1 APTT 28 Sodium Potassium Chloride Carbon Dioxide BUN Creatinine Estimated GFR BUN/Creatinine Ratio Glucose Hemoglobin A1c Calcium Total Bilirubin AST ALT Alkaline Phosphatase Total Creatine Kinase CK-MB (CK-2) CK-MB (CK-2) Rel Index Troponin I NT-Pro-B Natriuret Pep 1180 H Total Protein Albumin Globulin Albumin/Globulin Ratio Urine Color Urine Appearance Urine pH Ur Specific [place] Urine Protein Urine Glucose (UA) Urine Ketones Urine Occult Blood Urine Nitrate Urine Bilirubin Urine Urobilinogen Ur Leukocyte Esterase Urine RBC Urine WBC Ur Squamous Epith Cells Urine Bacteria Urine Yeast Ur Culture Indicated? SARS-CoV-2 (PCR) Blood Type Antibody Screen [facility] Medical History (Updated 02/02/22 @ 01:36 by TRENT Harris-REBA) Diabetic neuropathy associated with type 2 diabetes mellitus Essential hypertension History of heart attack History of stroke with residual deficit Insulin dependent diabetes mellitus with complications Obesity (BMI 30-39.9) Surgical History (Updated 02/02/22 @ 01:[address]) History of esophagogastroduodenoscopy (EGD) Family History Mother Diabetes mellitus Hypertension Hyperlipidemia Stroke Heart attack Sister Cancer Social History household members: children Tobacco & Substance Use Smoking Status: Never smoker Assessment & Plan Assessment and plan (1) Acute GI bleeding: Status: Acute Plan Suspect upper GI bleed. We will perform an EGD with anesthesia. We reviewed the risks and benefits and she would like to proceed. If no source of bleeding is found on EGD and she remains hemodynamically stable and her hemoglobin rem ains normal she can be discharged and schedule an outpatient colonoscopy. Time Spent With Patient Critical Care time: I spent a total of [] minutes of critical care time on this patient's care today; this time is exclusive of procedural time.
[2022-02-02] MEDS: SODIUM CHLORIDE 0.9% FLUSH 10 ML IV ×2 (09:30→20:44)
[2022-02-02] MEDS: lisinopriL 10 MG TABLET PO ×2 (09:30→20:31)
[2022-02-02] MEDS: PANTOPRAZOLE 40 MG VIAL IV ×2 (09:30→20:31)
[2022-02-02] MEDS: INSULIN GLARGINE 100 UNIT/ML 3ML PEN 50 UNIT SUBCUT (12:36)
--- NOTE | 2022-02-02 13:43 | CM.DANOTE ---
[facility]ED[facility] Assessment: Payor: Medicare PCP: Unknown Pt is a 61 y.o. F who presented to the ED with syncope episode in the bathroom at a camping retreat in [facility]. Pt states that she has had coffee-ground emesis and black tarry stools for the past week. Pt has a PMH of diabetes, hypertension, heart attack, stroke, and obesity. Pt was admitted as inpatient for further workup and management of symptoms. General surgery consulted and a planned scope is scheduled for sometime today. DCP went to meet with pt this afternoon to discuss discharge planning needs. Pt sleeping but daughter at bedside. DCP introduced herself and role. Pt daughter, Shira, states that the pt is in town visiting from [place] and she lives with two daughters. Pt daughter states that they were at a camping retreat in [facility] when pt started feeling bad. Pt has been having these symptoms for over a year pt daughter states. Pt daughter states that she is concerned she won't have a ride back home in [place], where she lives. Pt daughter states that she does not drive. DCP asked about other family in the area and she stated she just moved here in December and does not know anyone here. Pt daughter has seven kids and her went back home with the kids yesterday. DCP inquired about being able to come back and pick out hand herself and her mother upon discharge. Pt daughter states she will talk with the and ask. Daughter states that they are waiting until her scope procedure but wants to know when she would be discharged. DCP did not have an answer as we are awaiting procedure and determination by the doctor. Pt daughter verbalized understanding and white board was updated. Instructed to call. Daughter thankful for the discussion. P: Pt to have a scope procedure today with Dr. Alcala and potential colonoscopy on per daughter. Once pt is medically stable to discharge, pt to discharge back home with daughter via daughter spouse POV. Connie Marino RN/PHILIP Discharge Planning/Care Management CM Discharge Assessment Start: 02/02/22 12:02 Freq: Status: Active Protocol: Document 02/02/22 13:41 YASSINE (Rec: 02/02/22 13:42 YASSINE [id number]) Discharge Planning Assessment Assigned Heating Technician Connie Marino RN/DCP Advance Directives? No History Provided By Family Member Prior Living Arrangements House Household Members children Type of transporation used prior to Relies on Others admit Independent with ADL's Yes Is patient alert and oriented? Yes Caregiver for Another No Discharge Plan Home Transportation Arrangement Daughter spouse to provide transport. Referrals Initiated None needed Additional Comment At this time Whiteboard Updated in Patient Room with Yes name and ext. # of Heating Technician Comment Instructed to call Review Status In Process Please Provide Date Initial DC 02/02/22 Assessment Was Performed Next Review Type Continued Stay Review
--- NOTE | 2022-02-02 14:30 | DIET.CONS2 ---
Dietary Inpatient Consultation Note Admission Date: 02/01/2022 22:53 Attempted consult with patient who was soundly sleeping along with support person in dark room. Will attempt consult between outpatient visits or tomorrow am. Diet: 02/01/22 22:55 NPO Diet Diet Modifications: NPO Type: NPO NOW for Procedure 02/02/22 Breakfast Courtesy Luis Alberto (Peds, comfort care) Diet Modifications: Electronically Signed by: Lesa Quiles 02/02/22 14:30 Clinical Dietitian [address] [id number]
--- NOTE | 2022-02-02 14:57 | PC.NURSE ---
Addendum entered by Guerda Lee R.N. 02/02/22 18:30: Patient back from surgery and is groggy. She is tolerating a carb consistent diet. Blood sugar is 200 and 4u of insulin given. Patients daughter sent down to the ER so she will not be back up to see patient for a while. Per yield analyst they sent a biopsy off and did not see any acute bleeding or hemorrage. Tolerating food well. On 1L of oxygen but patient is awake now, will check o2 sats again. Original Note: Assess- Patient is alert and oriented x4, she denies pain. Bowel tones are positive x4. Up with one person assist to the commode, voiding well. Patient is resting now and is npo. She is going down soon for a egd. Daughter in room.
[2022-02-02] MEDS: LACTATED RINGERS 1,000 ML 42 ML IV (16:14)
--- NOTE | 2022-02-02 17:10 | PM.OP.EGD ---
Operative Date/Time/Diagnoses Date of procedure: 02/02/22 Time of procedure: 17:10 Pre-op diagnosis: Hematemesis Post-op diagnosis: same Procedure & Clinicians Study performed: Esophagogastroduodenoscopy Same procedure as scheduled: Yes Surgeon: Elías Silva Procedure Notes Procedure in detail: Surgeon: Elías Silva MD A timeout was performed. A bite blocked was placed. General endotracheal anesthesia was induced. The endoscope was inserted through the bite block and passed through the esophagus and stomach and into the duodenum. The duodenal mucosa appeared normal. The scope was withdrawn into the duodenal bulb and no abnormalities were seen. The scope was withdrawn into the stomach. There was no evidence of recent GI bleeding. There were some small, shallow ulcers in the antrum. Random biopsies were taken from the antral mucosa. The rest of the stomach was normal. The scope was retroflexed and no hiatal hernia was seen. The scope was withdrawn into the esophagus and no abnormalities were noted. The remainder of the esophagus was normal. The scope was withdrawn. The patient was awakened and brought to recovery. Findings: No evidence of recent hemorrhage, small, shallow antral ulcers Post-procedure Plan for aftercare: Recommend outpatient colonoscopy Disposition: PACU
--- NOTE | 2022-02-02 17:35 | P.PN_ITS ---
Subjective Subjective Date Patient Seen: 02/02/22 Time Patient Seen: 09:00 Interval history: Patient says she currently feels well. Has had no further vomiting or black stools. Exam Vital Signs (past 8 hours): - 02/02/22 12:14 02/02/22 15:37 02/02/22 16:12 Temperature 96.8 F L 98.0 F Pulse Rate 76 87 Respiratory Rate 18 16 Blood Pressure 112/62 154/90 H Pulse Oximetry 98 100 Oxygen Delivery Method Room Air Room Air Oxygen Flow Rate 0 02/02/22 17:13 02/02/22 17:18 02/02/22 17:23 Temperature 98.1 F 97.6 F 97 F L Pulse Rate 100 H 98 H 94 H Respiratory Rate 20 16 19 Blood Pressure 164/86 H 141/78 H 142/78 H Pulse Oximetry 90 L 91 92 Oxygen Delivery Method Room Air Room Air Nasal Cannula Oxygen Flow Rate 0 0 1 02/02/22 17:33 02/02/22 17:29 Temperature 97.4 F L 97.8 F Pulse Rate 92 H 93 H Respiratory Rate 16 16 Blood Pressure 119/68 132/73 Pulse Oximetry 93 94 Oxygen Delivery Method Room Air Room Air Oxygen Flow Rate 0 0 Oxygen Delivery Method Room Air Oxygen Flow Rate 0 Narrative Exam Narrative: General: Patient is a pleasant pale obese female in no distress at this time. HEENT: Normocephalic, atraumatic, extraocular muscles intact, oral pharynx is clear and mucous membranes are moist. Neck is supple and symmetric, trachea is midline, no adenopathy, no thyroid enlargement, nontender, no masses palpated. Negative for JVD Chest: Normal AP diameter and contour without kyphoscoliosis, no nasal flaring, retractions, or tachypneic labored breathing. Lungs: Auscultation of all lung calderon are clear without adventitious sounds, wheezes, rhonchi, or rales. Cardio: S1 & S2 with regular rate and rhythm without murmur, rubs, or gallops, no carotid bruit, no cardiac pulsations present. Abdomen: Soft diffusely tender to palpation throughout, negative for organomegaly, or masses. Bowel sounds are present in all 4 quadrants, mild guarding, no rebound, no CVA tenderness. Musculoskeletal: Muscle strength and tone are equal within normal limits, no deformity, crepitus, effusions, cyanosis, clubbing or edema present. Full range of motion intact radial and pedal pulses are normal. Skin: Warm dry and intact without rashes, ulcerations or petechiae. Neuro: Alert and orientated x3, poor historian strength is +5/5 in all extremities, sensation to touch intact, no gross deficits noted of cranial nerves. Psych: Patient has a well-kept appearance, appropriate affect, mental status attitude thought context and judgment are slightly less than anticipated for stated age. Objective Labs Result Diagrams: 02/02/22 06:00 02/01/22 20:13 Labs: Laboratory Results - last 24 hr 02/01/22 02/01/22 02/01/22 20:00 20:13 20:13 WBC 9.1 RBC 4.94 Hgb 14.5 Hct 43.6 MCV 88.3 MCH 29.3 MCHC 33.2 RDW 13.4 Plt Count 265 Neut % (Auto) 60.8 Lymph % (Auto) 23.9 L [place]agoner % (Auto) 11.4 Eos % (Auto) 3.4 Baso % (Auto) 0.5 Neut # (Auto) 5500 Lymph # (Auto) 2200 [place]er # (Auto) 1000 H Eos # (Auto) 300 Baso # (Auto) 0 PT INR APTT Sodium 135 L Potassium 3.8 Chloride 101 Carbon Dioxide 25 BUN 12 Creatinine 0.73 Estimated GFR > 60 BUN/Creatinine Ratio 16.4 Glucose 370 H Hemoglobin A1c Calcium 8.6 Total Bilirubin 0.6 AST 52 H ALT 24 Alkaline Phosphatase 98 Total Creatine Kinase CK-MB (CK-2) CK-MB (CK-2) Rel Index Troponin I NT-Pro-B Natriuret Pep Total Protein 8.6 H Albumin 4.2 Globulin 4.4 H Albumin/Globulin Ratio 1.0 Urine Color Urine Appearance Urine pH Ur Specific [place] Urine Protein Urine Glucose (UA) Urine Ketones Urine Occult Blood Urine Nitrate Urine Bilirubin Urine Urobilinogen Ur Leukocyte Esterase Urine RBC Urine WBC Ur Squamous Epith Cells Urine Bacteria Urine Yeast Ur Culture Indicated? SARS-CoV-2 (PCR) Negative Blood Type Antibody Screen 02/01/22 02/01/22 02/01/22 20:13 20:13 20:13 WBC RBC Hgb Hct MCV MCH MCHC RDW Plt Count Neut % (Auto) Lymph % (Auto) [place] % (Auto) Eos % (Auto) Baso % (Auto) Neut # (Auto) Lymph # (Auto) [place] # (Auto) Eos # (Auto) Baso # (Auto) PT 11.3 INR 1.0 APTT 29 Sodium Potassium Chloride Carbon Dioxide BUN Creatinine Estimated GFR BUN/Creatinine Ratio Glucose Hemoglobin A1c Calcium Total Bilirubin AST ALT Alkaline Phosphatase Total Creatine Kinase 80 CK-MB (CK-2) TNP CK-MB (CK-2) Rel Index TNP Troponin I < 0.012 NT-Pro-B Natriuret Pep Total Protein Albumin Globulin Albumin/Globulin Ratio Urine Color Urine Appearance Urine pH Ur Specific [place] Urine Protein Urine Glucose (UA) Urine Ketones Urine Occult Blood Urine Nitrate Urine Bilirubin Urine Urobilinogen Ur Leukocyte Esterase Urine RBC Urine WBC Ur Squamous Epith Cells Urine Bacteria Urine Yeast Ur Culture Indicated? SARS-CoV-2 (PCR) Blood Type O Positive Antibody Screen Negative 02/01/22 02/02/22 02/02/22 20:13 00:01 06:00 WBC RBC Hgb 12.7 Hct 37.3 MCV MCH MCHC RDW Plt Count Neut % (Auto) Lymph % (Auto) W[place]er % (Auto) Eos % (Auto) Baso % (Auto) Neut # (Auto) Lymph # (Auto) Wagoner # (Auto) Eos # (Auto) Baso # (Auto) PT INR APTT Sodium Potassium Chloride Carbon Dioxide BUN Creatinine Estimated GFR BUN/Creatinine Ratio Glucose Hemoglobin A1c > 14.0 H Calcium Total Bilirubin AST ALT Alkaline Phosphatase Total Creatine Kinase CK-MB (CK-2) CK-MB (CK-2) Rel Index Troponin I NT-Pro-B Natriuret Pep Total Protein Albumin Globulin Albumin/Globulin Ratio Urine Color Straw Urine Appearance Sl cloudy Urine pH 5.0 Ur Specific [place] 1.010 Urine Protein Trace H Urine Glucose (UA) 2+ H Urine Ketones Negative Urine Occult Blood 1+ H Urine Nitrate Negative Urine Bilirubin Negative Urine Urobilinogen 0.2 Ur Leukocyte Esterase Trace H Urine RBC 0-1/hpf Urine WBC 5-10/hpf H Ur Squamous Epith Cells 1-5 /hpf Urine Bacteria Many (>30) H Urine Yeast 0-1/hpf Ur Culture Indicated? Specimen cultured SARS-CoV-2 (PCR) Blood Type Antibody Screen 02/02/22 02/02/22 06:00 06:00 WBC RBC Hgb Hct MCV MCH MCHC RDW Plt Count Neut % (Auto) Lymph % (Auto) [place] % (Auto) Eos % (Auto) Baso % (Auto) Neut # (Auto) Lymph # (Auto) [place] # (Auto) Eos # (Auto) Baso # (Auto) PT 12.0 INR 1.1 APTT 28 Sodium Potassium Chloride Carbon Dioxide BUN Creatinine Estimated GFR BUN/Creatinine Ratio Glucose Hemoglobin A1c Calcium Total Bilirubin AST ALT Alkaline Phosphatase Total Creatine Kinase CK-MB (CK-2) CK-MB (CK-2) Rel Index Troponin I NT-Pro-B Natriuret Pep 1180 H Total Protein Albumin Globulin Albumin/Globulin Ratio Urine Color Urine Appearance Urine pH Ur Specific [place] Urine Protein Urine Glucose (UA) Urine Ketones Urine Occult Blood Urine Nitrate Urine Bilirubin Urine Urobilinogen Ur Leukocyte Esterase Urine RBC Urine WBC Ur Squamous Epith Cells Urine Bacteria Urine Yeast Ur Culture Indicated? SARS-CoV-2 (PCR) Blood Type Antibody Screen [facility] Medical History Diabetic neuropathy associated with type 2 diabetes mellitus Essential hypertension History of heart attack History of stroke with residual deficit Insulin dependent diabetes mellitus with complications Obesity (BMI 30-39.9) Surgical History History of esophagogastroduodenoscopy (EGD) Family History Mother Diabetes mellitus Hypertension Hyperlipidemia Stroke Heart attack Sister Cancer Social History household members: children Smoking Status: Never smoker Assessment & Plan Assessment & Plan narrative: Joann Marie is a 61-year-old female with a medical history a heart attack in 2019, stroke 2017, Covid 2020, essential hypertension, (non-compliant)insulin-dependent type 2 diabetes with neuropathy and obesity who presented to the ED following being found down in restroom- syncopal episode following a reported multiple coffee-ground emesis and black tarry bowel movement multiple times daily x 1 week. 1. Syncope as a result of Acute upper GI bleed, present on admission -as evidence by positive guaiac stool in ED, and coffee-ground emesis.-though patient's H&H are stable 14.5/43.6. -EGD 02/[address] Silva showed shallow antral ulcers with no evidence of recent bleeding -continue protonix IV 40mg BID -H/H stable, continue to monitor 2. Uncontrolled hypertension, essential, acute on chronic, present on admission with a history stroke and heart attack. -admitting blood pressure 162/91 -Continue Lisinopril 10mg BID -Recommend that patient follow up with her PCP upon returning home, and obtain Cardiology evaluation. 3. Insulin-dependent type 2 diabetes with neuropathy, medication noncompliance, hyperglycemia, acute on chronic, present on admission -high suspicion of uncontrolled diabetic induced gastroparesis. -Lantus 25 units and SSI given A1c>14% -Diabetes education consult 4. Obesity as evidence by BMI of 38.9, acute on chronic, present on admission -dietary consult placed for nutritional education and weight loss. -Follow up with PCP for dietary and lifestyle changes. Code status:Full Surrogate decision maker: Daughter Shira FABIAN PCR:Negative Time Spent With Patient Critical Care time: I spent a total of [] minutes of critical care time on this patient's care today; this time is exclusive of procedural time.
[2022-02-02] MEDS: INSULIN GLARGINE 100 UNIT/ML 3ML PEN 25 UNIT SUBCUT (20:33)
[2022-02-02 20:39] LABS: Add Manual Diff / Slide Review NO; Basophils Absolute Auto 0 /uL (0-100); Basophils Percent Auto 0.5 % (0-2); Eosinophils Absolute Auto 300 /uL (0-450); Hematocrit 38.7 % (36-46); Hemoglobin 12.8 g/dL (12.0-16.0); Lymphocytes Absolute Auto 2300 /uL (1100-4500); Mean Corpuscular Hemoglobin 29.1 PG (26-34); Monocytes Absolute Auto 1000 /uL (0-900); Monocytes Percent Auto 10.3 % (3-14); Neutrophils Absolute Auto 6000 /uL (1500-7000); Neutrophils Percent Auto 62.2 % (50-75); Platelet Count 232 X10^3/uL (150-400); Red Blood Cell Count 4.39 X10^6/uL (4.0-5.2); Red Cell Distribution Width 13.1 % (11.6-14.8); White Blood Cell Count 9.7 X10^3/uL (4.5-11.0)
--- NOTE | 2022-02-03 00:15 | PC.NURSE ---
Patient is alert and oriented with flat affect. Breath sounds diminished at bases but CTA with RA sat of 97%. HRR and telemetry reading was SR. Denies nausea. Frequent requests for snacks; CBG was 240. BT present and abdomen is soft but still has tenderness in epigastric area. No stools have been reported since admission but when gotten up to [facility] earlier did have black staining on panties. Denies dyuria with urination. Is able to turn herself in bed and is out of bed with 1 assist + walker. Is wearing bilateral calf SCD's. Complained of 8/10 headache earlier and was medicated with Tylenol and provided ice pack. Fall risk score is high and bed alarm is activated.
[2022-02-03 00:17] VITALS: BP 128/88; PULSE 77; RESP 18; TEMP 36.3; O2SAT 96
[2022-02-03] MEDS: MAG HYDROX/ALUM/SIMETH 30 ML UDC PO (01:41)
[2022-02-03] MEDS: SODIUM CHLORIDE 0.9% 1,000 ML 100 ML IV (01:44)
[2022-02-03 05:05] VITALS: BP 135/70; PULSE 68; RESP 18; TEMP 36.2; O2SAT 94
--- NOTE | 2022-02-03 07:05 | P.DS_ITS ---
History of Present Illness History of Present Illness Chief complaint: Syncope Narrative: Joann Marie is a 61-year-old female with a medical history a heart attack in 2019, stroke 2017, Covid 2020, essential hypertension, insulin-dependent type 2 diabetes with neuropathy and morbid obesity who presented to the ED following being found down in restroom- syncopal episode following black tarry bowel movement.? The patient is visiting from [facility] and complains of dizziness,? headache, weakness, fatigue, coffee-ground emesis x2 daily x 6 days and worsening black tarry stools x1 week, generalized diffuse abdominal pain.? Patient is an inconsistent historian.? She reports that the abdominal pain diarrhea and vomiting after eating and coughing up blood and pain with eating and blood in her stool has been going on for approximately a year. Patient states that she was hospitalized for COVID February 2021 and reports that she was complaining of bloody stools but that the hospital found her stools to be guaiac negative at that time that she also may have had a EGD that was negative.? Patient also complains of right-sided chest pain that she can elicited by palpation x 1 day.? Patient does denies shortness of breath, no recent trauma, injury or illness exposure.? She states that she did have flu- like symptoms approximately 1 week ago.? Patient has balance coordination issues following her stroke in 2016 and uses a walker at home.? Patient reports that she is compliant in taking 50 units of Lantus b.i.d, 40 units of Humalog 3 times daily, 1000 mg of metformin 3 times daily, based on A1c >14 this is clinically in probable.? Patient also reports that she takes lisinopril 10 mg b.i.d. for her hypertension.? Patient denies any history of GI bleed, syncope, blood thinners, history of blood clots.? Patient's last guaiac-positive stool was in the ED.? Patient denies any urinary symptoms frequency urgency dysuria. Patient is stable, slightly pale looking in no distress at the time of admit.? Temp 97.1?, BP 162/91, HR 101, R 21, O2 saturation 97% on room air.? Patient's CBC/H&H are normal, CMP is normal with the exception of a glucose of 370, an AST of 52, PT/INR/troponin are also normal.? Patient is not in DKA and has no gap.? Patient's abdomen pelvis CT demonstrated no diverticulitis or masslike bowel wall thickening.? EKG demonstrated sinus tachycardia with a rate of 106 with left ventricular hypertrophy with R in aVL.? Patient admitted for syncope secondary to GI bleed, uncontrolled hypertension, and hyperglycemia.? Dr. Alcala general surgery to consult tomorrow. Discharge Providers Provider Date of admission: 02/01/22 22:53 Discharge Date: 02/03/22 Consults: 02/01/22 22:59 Consult to Physician Routine Comment: Consulting Provider: Raf Alcala Reason for consultation: GI bleed Has provider been notified: Yes 02/02/22 00:37 Consult to Pastoral Services Routine Comment: patient request 02/02/22 01:07 Consult to Dietitian, Adult Routine Comment: Reason For Exam: MNA = 11 02/02/22 02:04 Consult to Dietitian, Adult Routine Comment: Reason For Exam: BMI 38.9/Uncontrolled DM 02/02/22 05:33 Consult to General Surgery Routine Comment: Consulting Provider: Raf Alcala Reason for consultation: upper GIB Discharge provider: Parish Iglesias DO Summary Hospital Course Discharge Diagnosis: 1. Syncope as a result of Acute upper GI bleed, present on admission -as evidence by positive guaiac stool in ED, and coffee-ground emesis.-though patient's H&H are stable 14.5/43.6. -EGD 02/[address] Silva showed shallow antral ulcers with no evidence of recent bleeding -cdischarged on 40mg protonix daily and sucralfate QID daily -will need repeat outpatient EGD with colonoscopy at later time 2. Uncontrolled hypertension, essential, acute on chronic, present on admission with a history stroke and heart attack. -admitting blood pressure 162/91 -Continue Lisinopril 10mg BID -Recommend that patient follow up with her PCP upon returning home, and obtain Cardiology evaluation. 3. Insulin-dependent type 2 diabetes with neuropathy, medication noncompliance, hyperglycemia, acute on chronic, present on admission -high suspicion of uncontrolled diabetic induced gastroparesis. -Lantus 25 units and SSI given A1c>14% -Diabetes education consulted and met [facility] patient 4. Obesity as evidence by BMI of 38.9, acute on chronic, present on admission -dietary consult placed for nutritional education and weight loss. -Follow up with PCP for dietary and lifestyle changes. Hospital Course: Joann Marie is a 61-year-old female with a medical history a heart attack in 2019, stroke 2017, Covid 2020, essential hypertension, (non-compliant)insulin-dependent type 2 diabetes with neuropathy and obesity who presented to the ED following being found down in restroom- syncopal episode following a reported multiple coffee-ground emesis and black tarry bowel movement multiple times daily x 1 week. Hgb was normal despite this and remained normal throughout hospitalization. She underwent EGD on 02/03 which showed small non-bleeding antral ulcers but no other source of bleeding. A colonoscopy was recommended on an outpatient basis given her Hgb was stable. Exam Vital Signs (past 8 hours): - 02/03/22 00:17 02/03/22 00:17 02/03/22 05:05 Temperature 97.3 F L 97.1 F L Pulse Rate 77 68 Respiratory Rate 18 18 Blood Pressure 128/88 135/70 Pulse Oximetry 96 96 94 Oxygen Delivery Method Room Air Oxygen Flow Rate 0 02/03/22 05:05 Temperature Pulse Rate Respiratory Rate Blood Pressure Pulse Oximetry 94 Oxygen Delivery Method Room Air Oxygen Flow Rate 0 Oxygen Delivery Method Room Air Oxygen Flow Rate 0 Narrative Exam Narrative: General: Patient is a pleasant pale obese female in no distress at this time. Tired today. HEENT: Normocephalic, atraumatic, extraocular muscles intact, oral pharynx is clear and mucous membranes are moist. Neck is supple and symmetric, trachea is midline, no adenopathy, no thyroid enlargement, nontender, no masses palpated. Negative for JVD Chest: Normal AP diameter and contour without kyphoscoliosis, no nasal flaring, retractions, or tachypneic labored breathing. Lungs: Auscultation of all lung cal[place] are clear without adventitious sounds, wheezes, rhonchi, or rales. Cardio: S1 & S2 with regular rate and rhythm without murmur, rubs, or gallops, no carotid bruit, no cardiac pulsations present. Abdomen: Soft diffusely tender to palpation throughout, negative for organomegaly, or masses. Bowel sounds are present in all 4 quadrants, mild guarding, no rebound, no CVA tenderness. Musculoskeletal: Muscle strength and tone are equal within normal limits, no deformity, crepitus, effusions, cyanosis, clubbing or edema present. Full range of motion intact radial and pedal pulses are normal. Skin: Warm dry and intact without rashes, ulcerations or petechiae. Neuro: Alert and orientated x3, poor historian strength is +5/5 in all extremities, sensation to touch intact, no gross deficits noted of cranial nerves. Psych: Patient has a well-kept appearance, appropriate affect, mental status attitude thought context and judgment are slightly less than anticipated for stated age. Objective Labs Result Diagrams: 02/02/22 20:26 02/01/22 20:13 Labs: Laboratory Results - last 24 hr 02/02/22 02/02/22 06:00 20:26 WBC 9.7 RBC 4.39 Hgb 12.8 Hct 38.7 MCV 88.0 MCH 29.1 MCHC 33.0 RDW 13.1 Plt Count 232 Neut % (Auto) 62.2 Lymph % (Auto) 24.0 L [place] % (Auto) 10.3 Eos % (Auto) 3.0 Baso % (Auto) 0.5 Neut # (Auto) 6000 Lymph # (Auto) 2300 [place] # (Auto) 1000 H Eos # (Auto) 300 Baso # (Auto) 0 NT-Pro-B Natriuret Pep 1180 H [facility] Medical History Diabetic neuropathy associated with type 2 diabetes mellitus Essential hypertension History of heart attack History of stroke with residual deficit Insulin dependent diabetes mellitus with complications Obesity (BMI 30-39.9) Surgical History History of esophagogastroduodenoscopy (EGD) Family History Mother Diabetes mellitus Hypertension Hyperlipidemia Stroke Heart attack Sister Cancer Social History household members: children Smoking Status: Never smoker Discharge Plan Discharge Plan Patient Disposition: Home Provider Discharge Comment: Your admitted to the hospital due to vomiting blood. He had an upper endoscopy which showed small ulcers which were nonbleeding. Your blood counts remain stable and were actually in the normal range. Sending you home with daily Protonix antacid medication as well as sucralfate which helps coat the stomach to heal the ulcers. You should follow-up with a GI doctor in [place] to possibly have a repeat upper endoscopy definitely a colonoscopy to make sure your not bleeding from the bottom. Your hemoglobin A1c is also very high at 14% indicates your diabetes is very uncontrolled. Our early childhood special educator met with you to give you information. You should follow-up with her PCP to discuss what to do going forward for your diabetes management. Discharge orders & Medications Prescriptions: New pantoprazole [Protonix] 40 mg tablet,delayed release (DR/EC) 40 mg PO DAILY Qty: 90 0RF sucralfate 1 gram tablet 1 g PO QACHS Qty: 90 0RF Continued acetaminophen 500 mg Tablet 1,000 mg PO Q6H PRN (Reason: Headache) oxycodone-acetaminophen [Percocet] 10-325 mg Tablet 1 tab PO BID metformin 1,000 mg Tablet 1,000 mg PO BID lisinopril 10 mg Tablet 10 mg PO BID insulin lispro [Humalog Pen] 100 unit/mL Insulin Pen 40 unit SUBCUT TID Rx Instructions: before meals insulin glargine [Lantus Solostar U-100 Insulin] 100 unit/mL (3 mL) Insulin Pen 50 unit SUBCUT BID Diet/Activity/Treatments Diet: Carb-consistent/Diabetic Visit Report/Discharge Packet Instructions: DI for Gastric Ulcer
[2022-02-03 07:59] VITALS: BP 161/99; PULSE 86; RESP 16; TEMP 36; O2SAT 93
[2022-02-03] MEDS: INSULIN GLARGINE 100 UNIT/ML 3ML PEN 50 UNIT SUBCUT (08:36)
[2022-02-03] MEDS: INSULIN LISPRO 100 UNIT/ML 3ML VIAL SUBCUT ×2 (08:36→12:22)
[2022-02-03] MEDS: PANTOPRAZOLE 40 MG VIAL IV (08:37)
[2022-02-03] MEDS: lisinopriL 10 MG TABLET PO (08:37)
--- NOTE | 2022-02-03 10:10 | PC.NURSE ---
Assess- Patient is alert and oriented x4, her blood sugar is 286 this morning and her insulin has been given. IVF infusing has been disconnected at this time as patient is going to shower. She has been discharged, we are seeing who her ride will be. She denies pain and is doing well this am, she is tired.
--- NOTE | 2022-02-03 12:37 | CM.DPNOTE ---
DC Planing Note: Patient to discharge this afternoon. Son will be transporting. She will followup post op. Beverley Syed RN, DCP
== END 2022-02-03 12:42 | disposition home or self-care (01) | DRG 379 ==
LOC: ED 20:54 → AC 23:30
PROVIDERS: Surgery; Admitting Provider Nurse Practitioner Family; Emergency Provider Emergency Medicine; Visit Provider Nurse Practitioner Family
PROC: 0DJ08ZZ Inspection of Upper Intestinal Tract, Via Natural or Artificial Opening Endoscopic (ICD-10-PCS; CPT 43235; principal; 2022-02-02 16:15)
DX: K29.61 Other gastritis with bleeding (principal); R55 Syncope and collapse; I10 Essential (primary) hypertension; E11.65 Type 2 diabetes mellitus with hyperglycemia; E11.40 Type 2 diabetes mellitus with diabetic neuropathy, unspecified; E66.9 Obesity, unspecified; Z79.4 Long term (current) use of insulin; Z20.822 Contact with and (suspected) exposure to COVID-19; Z68.38 Body mass index [BMI] 38.0-38.9, adult; Z79.84 Long term (current) use of oral hypoglycemic drugs; Z86.73 Personal history of transient ischemic attack (TIA), and cerebral infarction without residual deficits; B96.81 Helicobacter pylori [H. pylori] as the cause of diseases classified elsewhere
CPT/HCPCS: 36415; 43239; 74177; 80053; 81001; 82272; 82550; 82962; 83036; 83880; 84484; 85014; 85018; 85025; 85610; 85730; 86850; 86900; 86901; 87077; 87086; 87186; 87635; 93005; 94760; 96374; 96375; 99232; 99284; C9803; C9113; J1815; J2405; J2704; J3010; Q9967